=== PATIENT | male | born 1980 | race Caucasian/White ===

== ENCOUNTER 2017-04-06 21:50 | Emergency (ER) | payer MEDICAID ==
[2017-04-06 21:58] VITALS: PULSE 103
[2017-04-06] MEDS ORDERED: CHLORDIAZEPOXIDE 25MG PREPK#6 BTL TAKEHOME ONE (22:45)
--- NOTE | 2017-04-06 22:49 | EDPHY ---
H & P Stated Complaint: ETOH Source: Patient, EMS Exam Limitations: Intoxication - Personal History Current Tetanus Diphtheria and Acellular Pertussis (TDAP): Unsure - Medical/Surgical History Other PMH: L ARM SURGERY - Social History Smoking Status: Current every day smoker Time Seen by Provider: 04/06/17 22:41 Constitutional: Initial Vital Signs Temperature (C) 36.9 C 04/06/17 21:50 Heart Rate 103 H 04/06/17 21:50 Respiratory Rate 16 04/06/17 21:50 Blood Pressure 117/68 04/06/17 21:50 O2 Sat (%) 92 04/06/17 21:50 O2 Delivery Mode Room Air Allergies/Adverse Reactions: No Known Allergies Allergy (Unverified 04/06/17 21:55) Home Medications: Medication Instructions Recorded Unk 05/18/10 NO HOME MEDS 07/21/10 Medical Decision Making ED Course/Re-evaluation: CHIEF COMPLAINT: alcohol intoxication HISTORY OF PRESENT ILLNESS: The patient is a chronic alcoholic living on the [address]. Patient drinks on a daily basis and obtains whatever alcohol is available. Patient was found by bystanders who called EMS system. Patient has had multiple ER visits over the last several years for the same complaint. Patient denies any injuries denies loss of consciousness denies any recent trauma. Patient denies co-ingestion patient denies suicidal or homicidal behavior. REVIEW OF SYSTEMS: Unable to obtain due to intoxication PHYSICAL EXAM: General Appearance: Alert, well hydrated, and non-toxic appearing. Head: Atraumatic without scalp tenderness or obvious injury Eyes: Pupils equal, round, reactive to light and accommodation, EOMI, no trauma , bilateral injection. Nose: Atraumatic, no rhinorrhea, clear. Throat: There is no erythema or exudates, no lesions, normal tonsils, mucus membranes moist. Neck: Supple, 2+ carotid upstroke, non-tender, no lymphadenopathy. Respiratory: No retractions, no distress, no wheezes, and no accessory muscle use. Lungs are clear to auscultation bilaterally. Cardiovascular: tachycardic rate, regular rhythm. Good capillary refill all extremities. Gastrointestinal: Abdomen is soft, non-tender, non-distended, no masses, no rebound, no guarding, no peritoneal signs. Musculoskeletal: Normal active ROM of all extremities, atraumatic. Neurological: Alert, appropriate, and interactive. The patient has normal DTRs and non-focal cranial nerves, motor, sensory, and cerebellar exam. No tongue fasciculations, no tremors Skin: No rashes, good turgor, no nodules on palpation. PAST MEDICAL HISTORY: alcoholism PAST SURGICAL HISTORY: denies SOCIAL HISTORY: heavy daily drinker, smokes cigarettes DIFFERENTIAL DIAGNOSIS: diagnosis considered but not limited to alcohol intoxication, polysubstance abuse, electrolyte abnormality, alcohol withdrawal MEDICAL DECISION MAKING: I serially examined this patient since the patient's arrival here in the emergency department. The patient continues to become more and more sober with each examination. I serially questioned the patient and the patient's story given initially has not changed. The patient still denies any trauma, any head injury, and any illicit drug use. At this point, the patient is walking the department freely and is clinically sober. We're discharging the patient to the [facility] in stable condition. (Selin Smith) Other Provider: PHYSICIAN DOCUMENTATION: The patient was evaluated and managed by the Physician Turn Out. My co- signature indicates that I have reviewed this chart and I agree with the findings and plan of care as documented. I am the secondary supervising physician. (Emi Schroeder) - Data Points Medications Given: Discontinued Medications Chlordiazepoxide (Librium 25 Mg Prepack#6) 1 btl TAKEHOME EDNOW ONE Stop: 04/06/17 22:46 Last Admin: 04/06/17 22:47 Dose: 1 btl Departure - Departure Disposition: Home, Routine, Self-Care Clinical Impression: Alcoholic intoxication Condition: Good Instructions: Chlordiazepoxide/Clidinium (By mouth), Alcohol Dependence (ED) Additional Instructions: Stop drinking alcohol. Referrals: [facility],. [Clinic] -
[2017-04-06 22:53] VITALS: BP 127/75; RESP 95; TEMP 98.2; O2SAT 98
== END 2017-04-06 23:08 | disposition home or self-care (01) ==
LOC: EDUNIT#
DX: F10.129 Alcohol abuse with intoxication, unspecified (principal); F17.200 Nicotine dependence, unspecified, uncomplicated

== ENCOUNTER 2017-04-21 00:14 | Emergency (ER) | payer MEDICAID ==
[2017-04-21 00:21] VITALS: BP 121/84; PULSE 96; RESP 16; TEMP 97.9; O2SAT 96
[2017-04-21] MEDS ORDERED: CHLORDIAZEPOXIDE 25MG PREPK#6 BTL TAKEHOME ONE (00:21)
--- NOTE | 2017-04-21 00:23 | EDPHY ---
H & P Stated Complaint: etoh HPI/ROS: HPI The patient presents with alcohol intoxication, brought in by paramedics after he was found by police unwilling to walk. He was unresponsive for the police, however he was conversant with paramedics though not willing to provide much information. He says he was just lying down listening to music. Says he has been drinking alcohol, he denies any co-ingestions. He has multiple visits to this emergency room in the past for alcohol intoxication.. REVIEW OF SYSTEMS Constitutional: No fever, no chills. Eyes: No discharge. ENT: No sore throat. Cardiovascular: No chest pain, no palpitations. Respiratory: No cough, no shortness of breath. Gastrointestinal: No abdominal pain, no vomiting. Genitourinary: No hematuria. Musculoskeletal: No back pain. Skin: No rashes. Neurological: No headache. PMHx: Denies Soc Hx: Homeless, alcohol abuse PHYSICAL General Appearance: Disheveled, appears intoxicated Eyes: Pupils equal and round no pallor or injection ENT, Mouth: Mucous membranes moist Respiratory: There are no retractions, lungs are clear to auscultation Cardiovascular: Regular rate and rhythm Gastrointestinal: Abdomen is soft and non-tender, no masses, bowel sounds normal Neurological: A&O, moves all extremities Skin: Warm and dry, no rashes Musculoskeletal: Neck is supple non tender Extremities: symmetrical, full range of motion Psychiatric: Patient is oriented X 3, there is no agitation Source: Patient, EMS, Old records Exam Limitations: Intoxication - Personal History Current Tetanus Diphtheria and Acellular Pertussis (TDAP): Unsure - Medical/Surgical History Hx Asthma: No Hx Chronic Respiratory Disease: No Hx Diabetes: No Hx Cardiac Disease: No Hx Renal Disease: No Hx Cirrhosis: Yes Hx Alcoholism: Yes Hx HIV/AIDS: No Hx Splenectomy or Spleen Trauma: No Other PMH: L ARM SURGERY, hep C, Pancreatits, alcoholism, - Social History Smoking Status: Current every day smoker Constitutional: Initial Vital Signs Temperature (C) 36.6 C 04/21/17 00:19 Heart Rate 96 04/21/17 00:19 Respiratory Rate 16 04/21/17 00:19 Blood Pressure 121/84 H 04/21/17 00:19 O2 Sat (%) 96 04/21/17 00:19 O2 Delivery Mode Room Air Allergies/Adverse Reactions: haloperidol [From Haldol] Allergy (Verified 04/21/17 00:18) Penicillins Allergy (Verified 04/21/17 00:18) Home Medications: Medication Instructions Recorded NO HOME MEDS 07/21/10 Medical Decision Making Differential Diagnosis: This is a 37-year-old homeless male with history of alcohol abuse who presents with alcohol intoxication, found by police, unable to walk. He denies any trauma or co ingestions. Blood glucose was 80 in the field. He denies any acute complaints and has a relatively normal physical exam. Differential diagnosis includes alcohol intoxication, polysubstance abuse, less likely intracranial hemorrhage. In the emergency room, the patient was monitored. He was able to walk with a steady gait for this and was [facility] with course of Librium. - Data Points Medications Given: Discontinued Medications Chlordiazepoxide (Librium 25 Mg Prepack#6) 1 btl TAKEHOME EDNOW ONE Stop: 04/21/17 00:22 Last Admin: 04/21/17 00:33 Dose: 1 btl Departure - Departure Disposition: Home, Routine, Self-Care Clinical Impression: Alcoholic intoxication Qualifiers: Complication of substance-induced condition: with delirium Qualified Code(s): F10.921 - Alcohol use, unspecified with intoxication delirium Condition: Good Instructions: Chlordiazepoxide (By mouth), Alcohol Intoxication (ED) Referrals: [facility] [Outside] - As per Instructions
== END 2017-04-21 00:38 | disposition home or self-care (01) ==
LOC: EDUNIT#
DX: F10.121 Alcohol abuse with intoxication delirium (principal); F17.200 Nicotine dependence, unspecified, uncomplicated

== ENCOUNTER 2017-04-30 00:50 | Emergency (ER) | payer MEDICAID ==
--- NOTE | 2017-04-30 00:56 | EDPHY ---
H & P HPI/ROS: Chief complaint: Alcohol withdrawal History of present illness: 37-year-old male presents to the emergency department requesting help as he is concerned he is going through alcohol withdrawal. Known history of alcohol abuse. He has no other complaints at this time. Review of systems: 10 point review of systems was obtained and other than described above was negative - Medical/Surgical History Hx Asthma: No Hx Chronic Respiratory Disease: No Hx Diabetes: No Hx Cardiac Disease: No Hx Renal Disease: No Hx Cirrhosis: Yes Hx Alcoholism: Yes Hx HIV/AIDS: No Hx Splenectomy or Spleen Trauma: No Other PMH: L ARM SURGERY, hep C, Pancreatits, alcoholism, - Social History Smoking Status: Current every day smoker - Physical Exam Exam: General Appearance: Alert, odor of alcohol on breath. Eyes: Pupils equal and round no pallor or injection. ENT, Mouth: Mucous membranes moist. Respiratory: There are no retractions, lungs are clear to auscultation. Cardiovascular: Regular rate and rhythm. Gastrointestinal: Abdomen is soft and non tender, no masses, bowel sounds normal. Neurological: Alert. Ambulating on his own. No tremulousness. Skin: Warm and dry, no rashes. Musculoskeletal: Neck is supple non tender. Extremities are symmetrical, full range of motion. Psychiatric: There is no agitation. Constitutional: Initial Vital Signs Temperature (C) 36.6 C 04/30/17 00:58 Heart Rate 91 04/30/17 00:58 Respiratory Rate 16 04/30/17 00:58 Blood Pressure 145/102 H 04/30/17 00:58 O2 Sat (%) 100 04/30/17 00:58 O2 Delivery Mode Room Air Allergies/Adverse Reactions: haloperidol [From Haldol] Allergy (Verified 04/30/17 01:45) Penicillins Allergy (Verified 04/30/17 01:45) Home Medications: Medication Instructions Recorded NO HOME MEDS 07/21/10 Medical Decision Making ED Course/Re-evaluation: Patient seen under the supervision of my secondary supervising physician Dr. Ricki De La Rosa. Patient presents concerned he has alcohol withdrawal. Strong odor of alcohol on breath. He is nontoxic. No evidence of severe withdrawal at this time. He will be discharged to the [facility]. Differential Diagnosis: Included but not limited to alcohol intoxication, alcohol withdrawal, DTs, polysubstance abuse Departure - Departure Disposition: Home, Routine, Self-Care Clinical Impression: Alcoholic intoxication Qualifiers: Complication of substance-induced condition: uncomplicated Qualified Code(s): F10.920 - Alcohol use, unspecified with intoxication, uncomplicated Condition: Good Instructions: Alcohol Intoxication (ED) Additional Instructions: Follow-up with a primary care doctor for recheck Return to the emergency room for any concerning signs or symptoms Referrals: NONE *PRIMARY CARE P,. [Primary Care Provider] - As per Instructions [facility],. [Clinic] - As per Instructions
[2017-04-30 01:03] VITALS: BP 145/102; PULSE 91; RESP 16; TEMP 97.9; O2SAT 100
== END 2017-04-30 01:04 | disposition home or self-care (01) ==
LOC: EDUNIT#
DX: F10.920 Alcohol use, unspecified with intoxication, uncomplicated (principal); F17.200 Nicotine dependence, unspecified, uncomplicated